=== PATIENT | female | born 1950 | race Caucasian/White ===

== ENCOUNTER 2018-07-15 08:25 | Outpatient (CLI) | payer OTHER, SELFPAY ==
[2018-07-15 10:03] LABS: ALT 33 U/L (12-78); AST 24 U/L (15-37); Albumin 3.8 g/dL (3.4-5.0); Alkaline Phosphatase 80 U/L (46-116); Anion Gap 6.7 mmol/L (3-11); BUN 26 mg/dL (7-18); CO2 28.3 mmol/L (21.0-32.0); CREATININE 1.01 mg/dL (0.55-1.02); Calcium 10.7 mg/dL (8.5-10.1); Chloride 104 mmol/L (98-107); Estimated GFR 54.51 (mL/min/1.73m2); Glucose 97 mg/dL (70-100); Potassium 4.2 mmol/L (3.5-5.1); Sodium 139 mmol/L (136-145)
== END 2018-07-15 08:45 ==
PROVIDERS: PCP Family Medicine; Visit Provider Family Medicine
DX: E83.52 Hypercalcemia (principal)
CPT/HCPCS: 36415; 80053

== ENCOUNTER 2019-01-13 07:10 | Outpatient (CLI) | payer OTHER, SELFPAY ==
[2019-01-13 07:48] LABS: HGB 12.4 g/dL (12.0-15.5); Mean Corp. HGB Concentration 33.5 g/dL (32.0-36.0); Mean Corpuscular Volume 92.5 fL (80-95); Mean Platelet Volume 10.1 fL (8.0-11.0); Platelet Count 287 x1000/uL (130-400); RBC Distribution Width 12.6 % (11.7-14.6); White Blood Cell Count 6.11 k/cumm (4.4-10.8)
[2019-01-13 08:34] LABS: ALT 44 U/L (12-78); AST 22 U/L (15-37); Albumin 3.9 g/dL (3.4-5.0); Alkaline Phosphatase 78 U/L (46-116); Anion Gap 6.6 mmol/L (3-11); BUN 36 mg/dL (7-18); Bilirubin, Total 0.7 mg/dL (0.2-1.0); CO2 28.4 mmol/L (21.0-32.0); CREATININE 1.07 mg/dL (0.55-1.02); Chloride 102 mmol/L (98-107); Cholesterol 202 mg/dL (50-200); Estimated GFR 50.84 (mL/min/1.73m2); Glucose 99 mg/dL (70-100); HDL Cholesterol 55 mg/dL (40-60); LDL CHOLESTEROL 111 mg/dL (<100); Potassium 4.6 mmol/L (3.5-5.1); Sodium 137 mmol/L (136-145); Total Protein 7.1 g/dL (6.4-8.2); Triglyceride 151 mg/dL (30-150)
[2019-01-13 08:44] LABS: Calcium 11.7 mg/dL (8.5-10.1)
[2019-01-13 13:23] LABS: Vitamin D 25 Total 19.4 ng/ml (30-100)
== END 2019-01-13 07:30 ==
PROVIDERS: PCP Family Medicine; Visit Provider Family Medicine
DX: I10 Essential (primary) hypertension (principal); Z00.00 Encounter for general adult medical examination without abnormal findings; E83.52 Hypercalcemia; E78.5 Hyperlipidemia, unspecified
CPT/HCPCS: 36415; 80053; 80061; 82306; 83721; 85027

== ENCOUNTER 2019-01-14 00:39 | Outpatient (CLI) | payer OTHER, SELFPAY ==
--- NOTE | 2019-01-14 07:43 | DI.MAMMO_ITS ---
SYMPTOM/DIAGNOSIS: SCREENING, Z12.31 MAMMOGRAMS: Mammograms were interpreted according to the usual protocol including computer analysis with CAD system, tomosynthesis and C view imaging. Comparison with prior examinations. Breast density A. No suspicious masses or microcalcifications are seen. There is no definite evidence of malignancy. IMPRESSION: Negative mammogram. Routine screening is recommended. Category I. MQSA ASSESSMENT OF FINDINGS: Negative. Category 1. Patient will receive a letter notifying them of these results. BI-RAD category A. The breasts are almost entirely fatty.
== END 2019-01-14 00:59 ==
PROVIDERS: PCP Family Medicine; Visit Provider Nurse Practitioner Family
DX: Z12.31 Encounter for screening mammogram for malignant neoplasm of breast (principal)
CPT/HCPCS: 77063; 77067

== ENCOUNTER 2019-02-09 08:33 | Emergency (ER) | payer OTHER, SELFPAY ==
--- NOTE | 2019-02-09 09:00 | NUR.NOTE ---
pt states that approximately 5 days ago she developed red 2 red spots under he left breast she states that they burn pt also feels rib pain underneath them that radiates along her rib to her back. RN asked PT shingles vaccination status PT ununsure but believed it was approximately 5 years
[2019-02-09 09:03] VITALS: BP 149/58; PULSE 68; RESP 16; TEMP 37.7; O2SAT 97
--- NOTE | 2019-02-09 09:17 | DI.RAD_ITS ---
SYMPTOM/DIAGNOSIS: LT CHEST PAIN PA AND LATERAL CHEST: No priors. The heart is normal in size. The lungs are clear. The mediastinal structures and pleura appear intact. CONCLUSION: Normal chest.
--- NOTE | 2019-02-09 09:20 | ED.GENADUL_ITS ---
Discharge Plan Disposition Patient Disposition: HOME Condition: Improving Discharge Details Chief Complaint: GenMedical Clinical Impression: Shingles outbreak Primary Care Provider: Brittni Tony ED Provider: Sergei Mckinney Home Meds and New Rx's Prescriptions: New valacyclovir 1 gram tablet 1,000 mg PO TID 7 Days Qty: 21 RF: 0 Continued [id number] [Ghtbbl-Zjylj-BQZ (with antiox)] 500-500-66.7 mg tablet 1 tab PO DAILY RF: 0 acetaminophen [Tylenol Extra Strength] 500 MG tablet 1,000 mg PO PRN PRNRF: 0 atorvastatin [Lipitor] 10 mg tablet 10 mg PO DAILY Qty: 90 RF: 4 lisinopril 20 mg tablet 20 mg PO DAILY Qty: 90 RF: 6 ibuprofen [Ibuprofen IB] 200 MG tablet 600 mg PO PRN PRNRF: 0 Discharge Instructions Instructions: Shingles (ED) Additional Instructions: May use Tylenol and/or ibuprofen as needed for pain. Please take medication as prescribed for 7 days. Return for any acute concern Medical Decision Making 68-year-old female presents with an irritating constant left sided rash with radiation to her back over 4 days time. It does appear consistent with shingles. She notes a history of chest cancers in her family and therefore referred for chest x-ray as this is within the differential diagnosis. Radiograph without acute finding. I will treat the patient with a course of valacyclovir 3 times daily times 7 days. She understands homecare, oral analgesia, follow-up as needed. HPI General Mode of arrival: ambulatory . Date/Time Provider Initiated Documentation: 02/09/19 09:10 . Limitations to Documentation: no limitations . Information obtained by: patient . History of Present Illness 68 year old F presents to the emergency department with the chief complaint of Left chest pain and rash under breast times 4 days, described as moderate, Quality is described as dull and constant, and is localized to the chest. Patient reports radiation to back. Patient started experiencing this day(s) and it has been constant. No relieving factors improve symptom(s), Other factors that worsen symptoms (Pressure from bed ) . Patient notes no other symptoms. and rash; denies cough and fever/chills. Patient did receive the following treatments prior to arrival, none Related Data Home Medications Medication Instructions Recorded Confirmed acetaminophen [Tylenol Extra 1,000 mg PO PRN PRN tab-cap 04/08/13 02/09/19 Strength] ibuprofen [Ibuprofen IB] 600 mg PO PRN PRN 11/09/16 02/09/19 ruaomkmtlve-zpe-ajvrnxhbt-hrb 1 tab PO DAILY tab 01/13/19 02/09/19 149-hyalur 500 mg-500 mg-66.7 mg tablet atorvastatin 10 mg tablet 10 mg PO DAILY #90 tab 01/16/19 02/09/19 lisinopril 20 mg tablet 20 mg PO DAILY #90 tab 01/16/19 02/09/19 valacyclovir 1,000 mg PO TID 7 Days #21 tab 02/09/19 Previous Rx's Medication Instructions Recorded atorvastatin 10 mg tablet 10 mg PO DAILY #90 tab 01/16/19 lisinopril 20 mg tablet 20 mg PO DAILY #90 tab 01/16/19 valacyclovir 1,000 mg PO TID 7 Days #21 tab 02/09/19 Allergies Allergy/AdvReac Type Severity Reaction Status Date / Time No Known Drug Allergies Allergy Verified 02/09/19 09:06 General Stated Complaint: GenMedical JERALD: 4 Review of Systems Review of Systems 6 systems reviewed and otherwise neg FORMERLY [facility] Medical History Familial hypocalciuric hypercalcemia (Chronic) Hypercholesterolemia (Acute) diverticulosis (Chronic) 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) Elevation of level of transaminase and lactic acid dehydrogenase (LDH) (Resolved) Smoker (Resolved) Essential hypertension (Inactive) Surgical History History of bilateral tubal ligation (Resolved) Hx of biopsy (Resolved) S/P dilatation and curettage (Resolved) section Colonoscopy - IV Sedation (03/20/06) Colonoscopy - IV Sedation (12/18/16) Dilation and curettage (~2000) Laparoscopic, Ovarian Bx (~2000) Ligation of fallopian tube Family History Sister Diabetes Essential hypertension Depression Hyperlipidemia Mother Essential hypertension Lung cancer Brain cancer Father Diabetes Lung cancer Brother HIV positive Cardiac arrhythmia Maternal Grandfather Lung cancer Paternal Grandfather Stomach cancer Maternal Grandmother Rectal cancer Paternal Grandmother CHF (congestive heart failure) Heart disease Sister Essential hypertension Hyperlipidemia Son No problems noted. Son No problems noted. 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 Pets and animals: No Sexually active: No Do you think of yourself as: straight/heterosexual Current gender identity: female What is your relationship status?: How often do you talk on the phone with friends or family?: three or more times per week How often do you get together with friends or relatives?: once per week How often do you attend spiritism or pentecostal services?: 4 or more times per year Do you belong to any clubs or organized social groups?: no Panel score (0-1 are the most socially isolated patients): 2 What type of physical activity do you participate in: walking and swimming Duration: 45-60 minutes/day Frequency: 3-4 times per week Radha/Congregational: Mandaeism Special radha needs: No Seatbelt use: sometimes Firearms in home: Yes Do you feel safe at home: Yes Do you feel safe in your relationship?: Yes History History 2 Para 2 Hx # Term Pregnancies Multiple births Hx # Pregnancies Ectopic pregnancies AB induced Hx Number of Living Children AB spontaneous Exam Narrative Exam Narrative: GEN: awake, alert, oriented 3. Pleasant, well groomed, interactive. HEAD: Normocephalic, atraumatic ENT: Mucous membranes moist, oropharynx unremarkable, External ear exam unremarkable EYES: PERRL, EOMI NECK: Full ROM, no DAYANARA, no menigismus CHEST/RESP: Nontender, clear to auscultation bilateral, no wheeze/rhonchi/rales. In the left inframammary region there is a slightly tender, raised erythematous rash with small vesicles CARDIOVASCULAR: RRR, no murmur, rub hedy. 2+ Rad pulse bilateral ABDOMEN: Soft, nontender, no mass. +Bowel sounds EXT: Full ROM, no edema, no rash Neuro: Grossly normal neurologic exam, conversant, interactive. Psych: Speech fluent, thoughts congruent, affect normal Course Vital Signs Temperature 37.7 C H 02/09/19 09:03 Pulse 68 02/09/19 09:03 Respiratory Rate 16 02/09/19 09:03 Blood Pressure 149/58 H 02/09/19 09:03 Pulse Oximetry 97 02/09/19 09:03 Temperature 37.7 C H 02/09/19 09:03 Temperature Source Skin 02/09/19 09:03 Pulse 68 02/09/19 09:03 Respiratory Rate 16 02/09/19 09:03 Respiratory Effort 02/09/19 09:07 Respiratory Depth Normal 02/09/19 09:07 Respiratory Pattern Normal 02/09/19 09:07 Blood Pressure 149/58 H 02/09/19 09:03 Blood Pressure Position Supine 02/09/19 09:03 Pulse Oximetry 97 02/09/19 09:03 Oxygen Delivery Method Room Air 02/09/19 09:03 Oxygen Flow Rate 0 02/09/19 09:03 Pain Level 5 02/09/19 09:03
--- NOTE | 2019-02-09 09:52 | DI.VRAD_ITS ---
EXAM: XR Chest, 2 Views EXAM DATE/TIME: 02/09/2019 9:18 AM CLINICAL HISTORY: 68 years old, female; Signs and symptoms; Other: L chest pain TECHNIQUE: Imaging protocol: XR of the chest, 2 views. COMPARISON: No relevant prior studies available. FINDINGS: Lungs: Unremarkable. No consolidation. Pleural space: Unremarkable. No pleural effusion. No pneumothorax. Heart/Mediastinum: Unremarkable. No cardiomegaly. Bones/joints: Unremarkable. IMPRESSION: No acute findings. Dictated and Authenticated by: Shayy Kent MD. Ordering:BRIELLE Mai MD
== END 2019-02-09 10:18 | disposition home or self-care (01) ==
PROVIDERS: Emergency Provider Emergency Medicine; PCP Family Medicine
DX: B02.9 Zoster without complications (principal)
CPT/HCPCS: 99283; 71046

== ENCOUNTER 2020-01-17 03:01 | Outpatient (CLI) | payer MEDICARE, BC, SELFPAY ==
[2020-01-17 10:16] LABS: HCT 36.8 % (36.0-46.0); HGB 12.2 g/dL (12.0-15.5); Mean Corp. HGB Concentration 33.2 g/dL (32.0-36.0); Mean Corpuscular Hemoglobin 30.7 pg (27.0-33.0); Mean Corpuscular Volume 92.5 fL (80-95); Mean Platelet Volume 10.4 fL (8.0-11.0); Platelet Count 272 x1000/uL (130-400); RBC 3.98 m/cumm (4.00-5.20); RBC Distribution Width 12.6 % (11.7-14.6); White Blood Cell Count 5.83 k/cumm (4.4-10.8)
[2020-01-17 11:05] LABS: ALT 35 U/L (14-59); AST 25 U/L (15-37); Alkaline Phosphatase 75 U/L (46-116); Anion Gap 5.9 mmol/L (3-11); BUN 38 mg/dL (7-18); Bilirubin, Total 0.8 mg/dL (0.2-1.0); CO2 29.1 mmol/L (21.0-32.0); CREATININE 1.24 mg/dL (0.55-1.02); Calcium 10.3 mg/dL (8.5-10.1); Calculated LDL 101 mg/dL (<100); Chloride 102 mmol/L (98-107); Cholesterol 181 mg/dL (<200); Estimated GFR 42.76 (mL/min/1.73m2); Glucose 93 mg/dL (74-106); HDL Cholesterol 54 mg/dL (40-60); Potassium 4.7 mmol/L (3.5-5.1); Sodium 137 mmol/L (136-145); Total Protein 7.1 g/dL (6.4-8.2); Triglyceride 130 mg/dL (<150)
== END 2020-01-17 03:21 ==
PROVIDERS: PCP Family Medicine; Visit Provider Family Medicine
DX: I10 Essential (primary) hypertension (principal); E78.00 Pure hypercholesterolemia, unspecified
CPT/HCPCS: 36415; 80053; 80061; 85027

== ENCOUNTER 2020-07-05 11:37 | Outpatient (CLI) | payer MEDICARE, BC, SELFPAY ==
--- NOTE | 2020-07-05 09:45 | DI.RAD_ITS ---
EXAM: XR KNEE LT 3V AP,LAT,HANNAH CLINICAL HISTORY: KNEE PAIN. TECHNIQUE: 2D digital imaging was performed. COMPARISON: CR XR CHEST 2V PA LATERAL from 02/09/2019 FINDINGS: Iqad-vt-eqxymwkj degenerative changes are seen in the left knee characterized by joint space narrowin g and periarticular spurring. The findings are most marked at the patellofemoral joint and the later al femoral tibial joint. The bones are normally mineralized. The soft tissues are unremarkable. IMPRESSION: Qhmf-jc-vfbiwzqa degenerative disease of the left knee. DATA REPOSITORY: RADIATION DOSE DELIVERED:
== END 2020-07-05 11:57 ==
PROVIDERS: PCP Family Medicine; Referring Provider Family Medicine; Visit Provider Student in an Organized Health Care Education/Training Program
DX: M17.12 Unilateral primary osteoarthritis, left knee (principal); M25.562 Pain in left knee; M23.92 Unspecified internal derangement of left knee; I10 Essential (primary) hypertension
CPT/HCPCS: 73562; 99203; 99214

== ENCOUNTER 2020-08-31 07:27 | Outpatient (CLI) | payer MEDICARE, BC, SELFPAY ==
[2020-09-03 09:11] LABS: Patient Race White; SARS-CoV-2 RNA Undetected (Undetected); SARS-CoV-2 Specimen Source Nasal
== END 2020-08-31 07:47 ==
PROVIDERS: PCP Family Medicine; Visit Provider Family Medicine
DX: Z11.59 Encounter for screening for other viral diseases (principal)
CPT/HCPCS: U0003

== ENCOUNTER 2020-09-27 01:49 | Outpatient (CLI) | payer MEDICARE, BC, SELFPAY ==
--- NOTE | 2020-09-27 12:49 | DI.MAMMO_ITS ---
EXAM: MAMMO SCREENING CLINICAL HISTORY: screening TECHNIQUE: Mammograms were interpreted according to the usual protocol including computer analysis w [employer] CAD system, tomosynthesis and C-view imaging. COMPARISON: 2010 through 2018 FINDINGS: The breasts are composed of mainly fatty density , Breast Density category A. No suspicious masses or suspicious microcalcifications are seen. No skin thickening or abnormal axillary lymph nodes are seen. There has been no significant change from prior exams. IMPRESSION: BI-RADS Category 1, Negative mammogram Yearly screening mammography is recommended. Breast Density - Category A, fatty density. A negative radiographic report should not delay biopsy if a dominant or clinically suspicious mass is present. Up to ten percent of cancers are not identified on mammography. A negative report may reinforce clinical impression. Adenosis and dense breasts may obscure an underlying neoplasm. False positive reports average 6 to 10%. Patient will receive a letter notifying them of these results.
== END 2020-09-27 02:09 ==
PROVIDERS: PCP Family Medicine; Visit Provider Nurse Practitioner Family
DX: Z12.31 Encounter for screening mammogram for malignant neoplasm of breast (principal)
CPT/HCPCS: 77063; 77067

== ENCOUNTER 2021-01-19 02:26 | Outpatient (CLI) | payer MEDICARE, BC, SELFPAY ==
[2021-01-19 09:26] LABS: ALT 41 U/L (14-59); AST 19 U/L (15-37); Albumin 3.7 g/dL (3.4-5.0); Alkaline Phosphatase 65 U/L (46-116); Anion Gap 6.9 mmol/L (3-11); BUN 35 mg/dL (7-18); Bilirubin, Total 0.5 mg/dL (0.2-1.0); CO2 28.1 mmol/L (21.0-32.0); CREATININE 1.4 mg/dL (0.55-1.02); Calcium 10.9 mg/dL (8.5-10.1); Chloride 105 mmol/L (98-107); Estimated GFR 37.07 (mL/min/1.73m2); Glucose 94 mg/dL (74-106); Potassium 4.5 mmol/L (3.5-5.1); Sodium 140 mmol/L (136-145); Total Protein 6.6 g/dL (6.4-8.2)
[2021-01-20 04:45] LABS: Vitamin D 25 Total 26.6 ng/ml (30-100)
== END 2021-01-19 02:27 | disposition home or self-care (01) ==
LOC: LBO 02:26
PROVIDERS: PCP Family Medicine; Visit Provider Family Medicine
DX: E55.9 Vitamin D deficiency, unspecified (principal); R79.89 Other specified abnormal findings of blood chemistry
CPT/HCPCS: 36415; 80053; 82306

== ENCOUNTER 2021-09-05 02:51 | Outpatient (CLI) | payer MEDICARE, BC, SELFPAY ==
[2021-09-05 09:09] LABS: ALT 90 U/L (14-59); AST 27 U/L (15-37); Albumin 3.9 g/dL (3.4-5.0); Alkaline Phosphatase 88 U/L (46-116); Anion Gap 8.5 mmol/L (3-11); BUN 37 mg/dL (7-18); Bilirubin, Total 0.7 mg/dL (0.2-1.0); CO2 26.5 mmol/L (21.0-32.0); CREATININE 1.3 mg/dL (0.55-1.02); Calcium 10.8 mg/dL (8.5-10.1); Calculated LDL 133 mg/dL (<100); Chloride 104 mmol/L (98-107); Cholesterol 217 mg/dL (<200); Estimated GFR 40.38 (mL/min/1.73m2); Glucose 94 mg/dL (74-106); HDL Cholesterol 50 mg/dL (40-60); Potassium 4.8 mmol/L (3.5-5.1); Sodium 139 mmol/L (136-145); Triglyceride 171 mg/dL (<150)
== END 2021-09-05 02:52 | disposition home or self-care (01) ==
LOC: LBO 02:51
PROVIDERS: PCP Family Medicine; Visit Provider Family Medicine
DX: I10 Essential (primary) hypertension (principal); E78.00 Pure hypercholesterolemia, unspecified; R74.8 Abnormal levels of other serum enzymes
CPT/HCPCS: 36415; 80053; 80061

== ENCOUNTER 2022-02-10 02:47 | Outpatient (CLI) | payer MEDICARE, BC, SELFPAY ==
[2022-02-10 10:36] LABS: ALT 41 U/L (14-59); AST 20 U/L (15-37); Albumin 3.9 g/dL (3.4-5.0); Alkaline Phosphatase 92 U/L (46-116); Anion Gap 8.8 mmol/L (3-11); BUN 44 mg/dL (7-18); Bilirubin, Total 0.7 mg/dL (0.2-1.0); CO2 26.2 mmol/L (21.0-32.0); CREATININE 1.4 mg/dL (0.55-1.02); Calcium 11.1 mg/dL (8.5-10.1); Calculated LDL 153 mg/dL (<100); Chloride 104 mmol/L (98-107); Cholesterol 242 mg/dL (<200); Estimated GFR 36.96 (mL/min/1.73m2); Glucose 92 mg/dL (74-106); HDL Cholesterol 55 mg/dL (40-60); Potassium 4.9 mmol/L (3.5-5.1); Sodium 139 mmol/L (136-145); Triglyceride 172 mg/dL (<150)
[2022-02-13 06:59] LABS: Vitamin D 25 Total 22.1 ng/mL (30-100)
== END 2022-02-10 02:48 | disposition home or self-care (01) ==
LOC: LBO 02:47
PROVIDERS: PCP Family Medicine; Visit Provider Family Medicine
DX: E55.9 Vitamin D deficiency, unspecified (principal); I10 Essential (primary) hypertension; R79.89 Other specified abnormal findings of blood chemistry
CPT/HCPCS: 36415; 80053; 80061; 82306

== ENCOUNTER → 2022-02-13 14:00 | Outpatient (CLI) | payer MEDICARE, BC, SELFPAY ==
--- NOTE | 2022-02-13 | DI.RAD_ITS ---
Exam(s) XR CHEST 2V PA LATERAL EXAM: XR CHEST 2V PA LATERAL CLINICAL HISTORY: COUGH, R05.9 TECHNIQUE: 2D digital imaging was performed. COMPARISON: CR XR CHEST 2V PA LATERAL from 02/09/2019 FINDINGS: MEDIASTINUM: Normal. HEART: Normal. PULMONARY VASCULATURE: Normal. LUNGS: Clear. PLEURAL SPACE: No pleural effusion or pneumothorax. BONE:Unremarkable for age. IMPRESSION: No acute abnormality. DATA REPOSITORY: RADIATION DOSE DELIVERED:
== END ==
PROVIDERS: PCP Family Medicine; Visit Provider Family Medicine
DX: R05.8 Other specified cough (principal)
CPT/HCPCS: 71046

== ENCOUNTER 2022-03-20 03:31 | Outpatient (CLI) | payer MEDICARE, BC, SELFPAY ==
[2022-03-20 11:11] LABS: ALT 31 U/L (14-59); AST 21 U/L (15-37); Albumin 4.2 g/dL (3.4-5.0); Alkaline Phosphatase 73 U/L (46-116); Anion Gap 8.4 mmol/L (3-11); BUN 27 mg/dL (7-18); CO2 26.6 mmol/L (21.0-32.0); CREATININE 1.3 mg/dL (0.55-1.02); Chloride 104 mmol/L (98-107); Estimated GFR 40.26 (mL/min/1.73m2); Glucose 104 mg/dL (74-106); Potassium 4.8 mmol/L (3.5-5.1); Sodium 139 mmol/L (136-145); Total Protein 7.1 g/dL (6.4-8.2)
[2022-03-20 11:24] LABS: Bilirubin, Total 0.8 mg/dL (0.2-1.0)
== END 2022-03-20 03:32 | disposition home or self-care (01) ==
LOC: LBO 03:31
PROVIDERS: PCP Family Medicine; Visit Provider Family Medicine
DX: R79.89 Other specified abnormal findings of blood chemistry (principal)
CPT/HCPCS: 36415; 80053

== ENCOUNTER → 2022-03-24 00:53 | Outpatient (CLI) | payer MEDICARE, BC, SELFPAY ==
--- NOTE | 2022-03-24 09:00 | DI.DEXA_ITS ---
Exam(s) XR DEXA BONE DENSITY W/WO MARQUISE EXAM: XR DEXA BONE DENSITY W/WO MARQUISE CLINICAL HISTORY: age related osteoporosis, M81.0 TECHNIQUE: COMPARISON: Comparison examination is 11/21/2007. FINDINGS: Lateral Spine Image: Unremarkable. No compression deformities identified. Left hip: Total T-Score: -1.0. This compares to -0.2 on the prior examination. This is a decrease of 9.9 perc ent in the bone mineral density. Total Z-Score: 0.6 T- and Z-scores: Within normal limits. Lumbar Spine: Total T-Score: -1.0. This compares to -1.2 on the prior examination. This is a 3.2 percent increase in the bone mineral density. Total Z-Score: 1.3 T- and Z-scores: Within normal limits. IMPRESSION: No evidence of osteoporosis.
--- NOTE | 2022-03-24 15:45 | DI.MAMMO_ITS ---
Exam(s) MAMMO SCREENING EXAM: MAMMO SCREENING CLINICAL HISTORY: screening, Z12.39 TECHNIQUE: Bilateral full field digital CC and MLO mammographic images were obtained with 3D tomosyn thesis and utilizing computer aided detection (CAD). COMPARISON: Available for comparison. FINDINGS: Masses/Architectural Distortion: None seen. There is a question of a new nodule in the outer left abdulaziz ast on the CC view. Microcalcifications: No suspicious pleomorphic-type are seen. Skin Thickening/Nipple Retraction: None. IMPRESSION: 1. Question of a new small nodule in the outer left breast on the CC view. 2. Additional views of the left breast should be obtained. Ultrasound may be indicated at that time. BI-RADS Category 0 - Assessment Incomplete: Need additional imaging evaluation Breast Density - Category A - Almost entirely fatty Breast density category C or D implies that the patient has dense breast tissue. Dense breast tissue is very common and is not abnormal but dense breast tissue can make it harder to find cancer on a ma mmogram. Also, dense breast tissue may increase their breast cancer risk. This information about the result of the mammogram report was provided to the patient to raise their awareness. Use this report when you speak with the patient about their risks for breast cancer, which includes their family hist ory. At that time, you may recommend for more screening tests (Ultrasound or MRI) as they might be us eful based on their risk. A negative radiographic report should not delay biopsy if a dominant or clinically suspicious mass is present. Up to ten percent of cancers are not identified on mammography. A negative report may reinforce clinical impression. Adenosis and dense breasts may obscure an underlying neoplasm. False positive reports average 6 to 10%. Patient will receive a letter notifying them of these results.
== END ==
PROVIDERS: PCP Family Medicine; Visit Provider Family Medicine
DX: Z12.31 Encounter for screening mammogram for malignant neoplasm of breast (principal); M85.88 Other specified disorders of bone density and structure, other site; R92.8 Other abnormal and inconclusive findings on diagnostic imaging of breast
CPT/HCPCS: 77063; 77067; 77080

== ENCOUNTER → 2022-04-04 01:08 | Outpatient (CLI) | payer MEDICARE, BC, SELFPAY ==
--- NOTE | 2022-04-04 14:30 | DI.MAMMO_ITS ---
Exam(s) MAMMO SCREEN CALL BACK UNI EXAM: MAMMO SCREEN CALL BACK UNI-LEFT AND COMPLETE LEFT BREAST ULTRASOUND CLINICAL HISTORY: F/U ABNL MAMMO, ? SMALL NODULE IN OUTER LT BREAST. TECHNIQUE: Unilateral spot mammographic images obtained with 3D tomosynthesisand utilizing computer aided detection (CAD). . Complete LEFT breast Ultrasound was also performed, including all 4 quadrants, the retroareolar regio n, and the ipsilateral axilla. COMPARISON: Prior mammograms were reviewed. This additional imaging was performed due to findings described on the recent screening mammogram of 03/24/2022. FINDINGS: DIAGNOSTIC LEFT BREAST MAMMOGRAM: Additional mammographic views performed todayrender this area somewhat less concerning.Probably benig n intramammary lymph node COMPLETE LEFT BREAST ULTRASOUND: Ultrasound performed today reveals no significant focal findings in all 4 quadrants nor in the retroa reolar region. Scanning of the left axilla is negative for significant adenopathy. IMPRESSION: 1. Benign-appearing left breast mammographic finding. 2. Negative complete left breast ultrasound. Appropriate follow-up is repeat left breast MAMMOGRAM in 6 months, with earlier imaging if a self de tected breast change is noted.. The patient was informed of these findings and recommendations prior to leaving the department today. BI-RADS Category 3 - 6 month - Probably Benign Finding: Recommend follow-up mammography in 6 months Breast Density - Category B - Scattered areas of fibroglandular density Breast density Category C or D implies that the patient has dense breast tissue. Dense breast tissue can make it harder to find cancer on a mammogram. Dense breast tissue is also associated with an incr eased risk of breast cancer. This information about the result of the mammogram report was provided to the patient to raise their awareness. Use this report when you speak with the patient about their risks for breast cancer, which includes their family history. At that time, you may recommend additional screening tests (Ultrasoun d or MRI) as these tests may add significant information. A negative radiographic report should not delay biopsy if a dominant or clinically suspicious mass is present. Up to ten percent of cancers are not identified on mammography. A negative report may reinforce clinical impression. Adenosis and dense breasts may obscure an underlying neoplasm. False positive reports average 6 to 10%. Patient will receive a letter notifying them of these results.
--- NOTE | 2022-04-04 15:00 | DI.US_ITS ---
Exam(s) US BREAST LT COMPLETE EXAM: US BREAST LT COMPLETE CLINICAL HISTORY: ? SMALL NODULE IN OUTER LT BREAST. TECHNIQUE: Complete ultrasound of the left breast was performed including all 4 quadrants, the retro areolar region, and the ipsilateral axilla. COMPARISON: Prior mammograms were reviewed. Today's diagnostic left breast mammogram was reviewed. FINDINGS: There is no evidence of solid or significant cystic lesions in all 4 quadrants of left breast. Also no findings in the retroareolar region Scanning of the left axilla is negative for significant adenopathy IMPRESSION: Negative complete left breast ultrasound. Appropriate follow-up is follow-up left breast MAMMOGRAM in 6 months, with earlier imaging if a self detected breast change is noted.. BI-RADS Category 3 - 6 month - Probably Benign Finding: Recommend follow-up mammography in 6 months Breast Density - Category B - Scattered areas of fibroglandular density Breast density Category C or D implies that the patient has dense breast tissue. Dense breast tissue can make it harder to find cancer on a mammogram. Dense breast tissue is also associated with an incr eased risk of breast cancer. This information about the result of the mammogram report was provided to the patient to raise their awareness. Use this report when you speak with the patient about their risks for breast cancer, which includes their family history. At that time, you may recommend additional screening tests (Ultrasoun d or MRI) as these tests may add significant information. A negative radiographic report should not delay biopsy if a dominant or clinically suspicious mass is present. Up to ten percent of cancers are not identified on mammography. A negative report may reinforce clinical impression. Adenosis and dense breasts may obscure an underlying neoplasm. False positive reports average 6 to 10%. Patient will receive a letter notifying them of these results.
== END ==
PROVIDERS: PCP Family Medicine; Visit Provider Family Medicine
DX: Z12.31 Encounter for screening mammogram for malignant neoplasm of breast (principal); R92.8 Other abnormal and inconclusive findings on diagnostic imaging of breast; N64.59 Other signs and symptoms in breast
CPT/HCPCS: 76642; 77063; 77067

== ENCOUNTER 2022-04-14 13:54 | Outpatient (REF) | payer MEDICARE, BC, SELFPAY ==
--- NOTE | 2022-04-14 11:15 | LABIA_PTH ---
PATIENT: Daniella Pitts LOC: [facility] U#:[id number] AGE/SX: 71/F ROOM: RE04/14/[address]: Jessica Jasso MD : 1950 BED: DIS: 04/14/2022 SPEC #: [id number] RECD: 04/14/22 17:29 STATUS: YAHAIRA RESelvin #: [id number] ELEAZAR: 04/14/22 11:[address]: Jessica Jasso DEPT: Surgical Specimen RECD BY: Gladys Hodge ENTERED: 04/14/22 17:30 SP TYPE: LABIA OTHR DR: Brittni Tony MD, DC Tissues: 1 - LABIA BX Procedures: GROSS AND MICRO LEVEL 4 Comments:
== END 2022-04-14 13:55 | disposition home or self-care (01) ==
LOC: LBN 13:54
PROVIDERS: PCP Family Medicine; Visit Provider Obstetrics & Gynecology
DX: N90.4 Leukoplakia of vulva (principal)
CPT/HCPCS: 88305

== ENCOUNTER 2022-07-25 01:42 | Outpatient (CLI) | payer MEDICARE, BC, SELFPAY ==
[2022-07-25 09:14] LABS: ALT 48 U/L (14-59); AST 24 U/L (15-37); Albumin 3.7 g/dL (3.4-5.0); Alkaline Phosphatase 78 U/L (46-116); Anion Gap 7.4 mmol/L (3-11); BUN 32 mg/dL (7-18); Bilirubin, Total 0.7 mg/dL (0.2-1.0); CO2 28.6 mmol/L (21.0-32.0); CREATININE 1.2 mg/dL (0.55-1.02); Calcium 11.1 mg/dL (8.5-10.1); Chloride 101 mmol/L (98-107); Estimated GFR 48.09 (mL/min/1.73m2); Glucose 93 mg/dL (74-106); Potassium 4.4 mmol/L (3.5-5.1); Sodium 137 mmol/L (136-145); Total Protein 7.4 g/dL (6.4-8.2)
== END 2022-07-25 01:43 | disposition home or self-care (01) ==
LOC: LBO 01:42
PROVIDERS: PCP Family Medicine; Visit Provider Family Medicine
DX: I10 Essential (primary) hypertension (principal)
CPT/HCPCS: 36415; 80053

== ENCOUNTER → 2022-10-10 02:08 | Outpatient (CLI) | payer MEDICARE, BC, SELFPAY ==
--- NOTE | 2022-10-10 07:30 | DI.MAMMO_ITS ---
Exam(s) MAMMO DIAGNOSTIC UNI EXAM: MAMMO DIAGNOSTIC UNI CLINICAL HISTORY: f/u abnormal mammo, r92.8,6 mo f/u. TECHNIQUE: Craniocaudal and mediolateral oblique Full Field Digital Mammography views of the left br east with Computer Aided Diagnosis followed by Tomosynthesis. COMPARISON: Comparison is made with prior examinations. FINDINGS: Mammography/Tomosynthesis: Masses/Architectural Distortion: None seen. Microcalcifictions: No suspicious pleomorphic-type are seen. Skin Thickening/Nipple Retraction: None. IMPRESSION: 1. No evidence of malignancy is noted. 2. Unless there is more urgent need, follow-up screening mammography is recommended, as per [place] [employer] guidelines. 3. The findings were discussed with the patient on the date of the examination. BI-RADS Category 1 - Negative Breast Density - Category A - Almost entirely fatty Breast density Category C or D implies that the patient has dense breast tissue. Dense breast tissue can make it harder to find cancer on a mammogram. Dense breast tissue is also associated with an incr eased risk of breast cancer. This information about the result of the mammogram report was provided to the patient to raise their awareness. Use this report when you speak with the patient about their risks for breast cancer, which includes their family history. At that time, you may recommend additional screening tests (Ultrasoun d or MRI) as these tests may add significant information. A negative radiographic report should not delay biopsy if a dominant or clinically suspicious mass is present. Up to ten percent of cancers are not identified on mammography. A negative report may reinforce clinical impression. Adenosis and dense breasts may obscure an underlying neoplasm. False positive reports average 6 to 10%. Patient will receive a letter notifying them of these results.
== END ==
PROVIDERS: PCP Family Medicine; Visit Provider Family Medicine
DX: R92.8 Other abnormal and inconclusive findings on diagnostic imaging of breast (principal)
CPT/HCPCS: 77061; 77065; G0279

== ENCOUNTER 2023-03-20 03:00 | Outpatient (CLI) | payer MEDICARE, BC, SELFPAY ==
[2023-03-20 13:15] LABS: ALT 36 U/L (14-59); AST 19 U/L (15-37); Albumin 3.9 g/dL (3.4-5.0); Alkaline Phosphatase 61 U/L (46-116); BUN 38 mg/dL (7-18); Bilirubin, Total 0.7 mg/dL (0.2-1.0); CREATININE 1.3 mg/dL (0.55-1.02); Calcium 10.9 mg/dL (8.5-10.1); Calculated LDL 96 mg/dL (<100); Chloride 103 mmol/L (98-107); Cholesterol 186 mg/dL (<200); Estimated GFR 43.42 (mL/min/1.73m2); Glucose 98 mg/dL (74-106); HDL Cholesterol 61 mg/dL (40-60); Potassium 4.2 mmol/L (3.5-5.1); Sodium 139 mmol/L (136-145); Total Protein 7.3 g/dL (6.4-8.2); Triglyceride 145 mg/dL (<150)
== END 2023-03-20 03:01 | disposition home or self-care (01) ==
LOC: LOS 03:00
PROVIDERS: PCP Family Medicine; Visit Provider Family Medicine
DX: I10 Essential (primary) hypertension (principal); R79.89 Other specified abnormal findings of blood chemistry
CPT/HCPCS: 36415; 80053; 80061

== ENCOUNTER 2023-06-22 13:30 | Emergency (ER) | payer MEDICARE, BC, SELFPAY ==
[2023-06-22 13:35] VITALS: BP 140/81; PULSE 88; RESP 16; TEMP 36.8; O2SAT 97
[2023-06-22] MEDS: Normal Saline 500 ML 1000 ML IV (14:29)
--- NOTE | 2023-06-22 14:30 | W.ED.GENAD ---
Discharge Plan Disposition Patient Disposition: Home Condition: Stable Discharge Details Clinical Impression: Duodenitis Primary Care Provider: Brittni Tony ED Provider: Liang Pride Home Meds and New Rx's Prescriptions: New pantoprazole 40 mg tablet,delayed release (DR/EC) 40 mg PO DAILY Qty: 30 0RF No Action cholecalciferol (vitamin D3) 50 mcg (2,000 unit) capsule 50 mcg PO DAILY Patient Comments: Patient currently taking 5000 mcg acetaminophen [Tylenol Extra Strength] 500 MG tablet 1,000 mg PO PRN PRN lisinopril 20 mg tablet 20 mg PO DAILY Qty: 90 6RF atorvastatin 20 mg tablet 20 mg PO DAILY Qty: 90 4RF Discharge Instructions Instructions: Duodenitis (ED) Additional Instructions: Please follow-up with your primary care physician as well as [facility] regarding findings today on your CT scan. Please return to the emergency department for any worsening symptoms. Medical Decision Making 72-year-old female history of diverticulosis, prior section, hypertension, presents with abdominal discomfort described as bloating sensation and nausea, no vomiting, no diarrhea or constipation, abdomen soft nontender nondistended, consider partial bowel obstruction versus gas versus early diverticulitis versus enteritis versus colitis lower suspicion for UTI given no urinary symptoms, muscles consider atypical ACS given age. Screening labs imaging fluids antiemetics close reassessment 15: 42 rest comfortably no acute distress. CT showing evidence of mild duodenitis, this is consistent with patient's symptoms. Consider peptic ulcer disease versus H. pylori. Patient will be started on pantoprazole encouraged to follow with primary care regarding symptomatology as well as incidental CT findings. Will also be given referral to women's wellness for evaluation of uterine and ovarian findings on CT. HPI General Date/Time Provider Initiated Documentation: 06/22/23 14:04. HPI Narrative: 72-year-old female history of prior section, diverticulosis, hypertension, presents with abdominal pain bloating and nausea over the past couple of days endorses normal bowel movement and passing normal flatus. Related Data Home Medications Medication Instructions Recorded Confirmed acetaminophen 500 mg tablet 1,000 mg PO PRN PRN 04/08/13 06/22/23 (Tylenol Extra Strength) cholecalciferol (vitamin D3) 50 50 mcg PO DAILY 03/20/22 06/22/23 mcg (2,000 unit) capsule atorvastatin 20 mg tablet 20 mg PO DAILY #90 tabs 03/15/23 06/22/23 lisinopril 20 mg tablet 20 mg PO DAILY #90 tabs 03/15/23 06/22/23 pantoprazole 40 mg tablet,delayed 40 mg PO DAILY #30 tabs 06/22/23 release Previous Rx's Medication Instructions Recorded atorvastatin 20 mg tablet 20 mg PO DAILY #90 tabs 03/15/23 lisinopril 20 mg tablet 20 mg PO DAILY #90 tabs 03/15/23 pantoprazole 40 mg tablet,delayed 40 mg PO DAILY #30 tabs 06/22/23 release Allergies Allergy/AdvReac Type Severity Reaction Status Date / Time No Known Drug Allergies Allergy Verified 06/22/23 13:37 General Stated Complaint: Abd Prob JERALD: 3 Review of Systems Narrative: Review of Systems Constitutional: negative Eyes: negative ENT: negative Cardiovascular: negative Respiratory: negative Gastrointestinal: Abdominal pain, nausea : negative Musculoskeletal: negative Skin: negative Neurologic: negative Psych: negative PFSH All Active Problems (Updated 06/22/23 @ 15:44 by Liang Pride MD) Duodenitis (Acute) Tremor of right hand (Acute) 2/m; intention Hypertension (Chronic) Abnormal mammogram of left breast (Acute) Elevated serum creatinine (Acute) Familial hypocalciuric hypercalcemia (Chronic) Hypercholesterolemia (Acute) diverticulosis (Chronic) Medical History Advance care planning Cough Elevation of level of transaminase and lactic acid dehydrogenase (LDH) 08/30/09 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 (10/06/13) Skin tag of labia removed 04/14 Smoker 10PY Hx;quit in Vitamin D deficiency Surgical History section LOW TRANSVERSE Colonoscopy - IV Sedation (03/20/06) Colonoscopy - IV Sedation (12/18/16) Dilation and curettage (~2000) ALSO PELVIC WASHING History of bilateral tubal ligation Hx of biopsy 11/05/00 laproscopic ovarian biopsy-left Laparoscopic, Ovarian Bx (~2000) left Ligation of fallopian tube S/P dilatation and curettage 11/05/00 and pelvic washing Family History Sister Diabetes Essential hypertension Depression Hyperlipidemia Mother , 68 Essential hypertension Lung cancer Brain cancer Father , 66 Diabetes Lung cancer Brother , 36 HIV positive Cardiac arrhythmia Maternal Grandfather , 60s Lung cancer Paternal Grandfather , 60s Stomach cancer Maternal Grandmother , 60s Rectal cancer Paternal Grandmother , 90s CHF (congestive heart failure) Heart disease Sister Essential hypertension Hyperlipidemia Son No problems noted. Son No problems noted. 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 Pets and animals: No Sexually active: No Do you think of yourself as: straight/heterosexual Current gender identity: female What is your relationship status?: How often do you talk on the phone with friends or family?: three or more times per week How often do you get together with friends or relatives?: decline to answer How often do you attend yazidism or holiness services?: decline to answer Do you belong to any clubs or organized social groups?: no Panel score (0-1 are the most socially isolated patients): 1 What type of physical activity do you participate in: swimming Duration: 45-60 minutes/day Frequency: 3-4 times per week Radha/Judaism: Sikhism Special radha needs: No Seatbelt use: always Helmet use: Yes Drive intox or ride w/intox service parts driver: No Firearms in home: Yes Do you feel safe at home: Yes Do you feel safe in your relationship?: Yes History History 2 Para 2 Hx # Term Pregnancies Multiple births Hx # Pregnancies Ectopic pregnancies AB induced Hx Number of Living Children AB spontaneous Exam Narrative Exam Narrative: Physical Examination General: alert, awake, cooperative, resting comfortably, no acute distress HEENT: normocephalic, atraumatic; PERRL, EOM intact, conjunctiva normal; no nasal discharge; moist mucous membranes, oral and pharyngeal mucosa normal, tolerating secretions Neck: supple, trachea midline; full ROM Chest: normal to inspection Respiratory: normal respiratory effort, speaking in full sentences, clear to auscultation, no wheezing, rales or rhonchi Cardiac: regular rate, regular rhythm, S1S2 intact, no murmurs rubs or gallops GI: abdomen soft, non-tender, non-distended; no palpable mass or hepatosplenomegaly Skin: no lesions, rashes or trauma appreciated Neuro: AAOx3, normal speech, moving all extremities Psych: Appropriate mood and affect Course Vital Signs Vital signs: Vital Signs Temperature 36.8 C 06/22/23 13:35 Pulse 88 06/22/23 13:35 Respiratory Rate 16 06/22/23 13:35 Blood Pressure 140/81 06/22/23 13:35 Pulse Oximetry 97 06/22/23 13:35 Temperature 36.8 C 06/22/23 13:35 Temperature Source Skin 06/22/23 13:35 Pulse 88 06/22/23 13:35 Respiratory Rate 16 06/22/23 13:35 Respiratory Effort Normal, Non-Labored 06/22/23 13:53 Blood Pressure 140/81 06/22/23 13:35 Blood Pressure Position Sitting 06/22/23 13:35 Pulse Oximetry 97 06/22/23 13:35 Oxygen Delivery Method Room Air 06/22/23 13:35 Oxygen Flow Rate 0 06/22/23 13:35 Pain Level 5 06/22/23 13:35
[2023-06-22 14:31] LABS: Abs Immature Grans 0.05 10^3/uL (0.0-0.06); Absolute Basophil Count 0.06 10^3/uL (0.0-0.2); Absolute Eosinophil Count 0.24 10^3/uL (0.0-0.7); Absolute Monocyte Count 0.56 10^3/uL (0.1-0.8); Absolute Neutrophil Count 4.78 10^3/uL (1.2-6.7); Basophils % 0.8; Eosinophils % 3.2; HCT 36.4 % (36.0-46.0); HGB 12.4 g/dL (11.2-15.7); Immature Grans % 0.7; MCH 31.3 pg (27.0-33.0); MCHC 34.1 % (32.0-36.0); MCV 92 fL (80-95); MPV 11.3 fL (8.0-11.0); Monocytes % 7.4; Neutrophils % 62.9; Platelet Count 251 10^3/uL (130-400); RBC 3.96 10^6/uL (3.93-5.22); RDW 12.8 % (11.7-14.6); RDW-SD 43.4 fL; WBC 7.59 10^3/uL (4.4-10.8)
[2023-06-22] MEDS: Ondansetron 4 MG/2 ML VIAL IVP (14:31)
[2023-06-22 14:33] LABS: Bilirubin Negative (Negative); Blood Negative (Negative); Clarity Clear (Clear); Glucose Negative (Negative); Ketones Negative (Negative); Leukocyte Esterase Trace (Negative); Nitrite Negative (Negative); Urobilinogen 0.2 mg/dL (Up to 0.2); pH 5.5 (5-8)
[2023-06-22 14:48] LABS: Bacteria Rare HPF (Negative); Casts Negative LPF (Negative); Crystals Negative HPF (Negative); Epithelial Cells Moderate HPF (Negative); Mucus Negative (Negative); RBC 0-2 HPF (0-2)
[2023-06-22 14:49] LABS: C & S Indicated? No/Sq. Contamination
[2023-06-22 14:55] LABS: ALT 38 U/L (14-59); AST 21 U/L (15-37); Alkaline Phosphatase 70 U/L (46-116); Anion Gap 9.2 mmol/L (3-11); BUN 27 mg/dL (7-18); Bilirubin, Total 0.9 mg/dL (0.2-1.0); CO2 26.8 mmol/L (21.0-32.0); CREATININE 1.2 mg/dL (0.55-1.02); Calcium 11.5 mg/dL (8.5-10.1); Chloride 107 mmol/L (98-107); Glucose 97 mg/dL (74-106); Lipase 30 U/L (16-77); Potassium 3.9 mmol/L (3.5-5.1); Sodium 143 mmol/L (136-145); Total Protein 7.2 g/dL (6.4-8.2); Troponin I < 50 ng/L (<or=60)
[2023-06-22] MEDS: Normal Saline - Diluent 50 ML VIAL IV (15:18)
--- NOTE | 2023-06-22 15:18 | DI.CT_ITS ---
Exam(s) CT ABDOMEN PELVIS W EXAM: CT ABDOMEN PELVIS W CLINICAL HISTORY: abdominal pain, bloating nausea. TECHNIQUE: Imaging Protocol: Axial computed tomography images with coronal and sagittal reformatted images were created and reviewed CONTRAST MATERIAL: Intravenous: Omnipaque-350 100cc Oral: None COMPARISON: No exams were available for comparison FINDINGS: VISUALIZED LUNG BASES: No nodules nor pleural effusions evident. ABDOMEN: There is no ascites. LIVER: There are no focal hepatic lesions evident. No dilated intrahepatic ducts. GALLBLADDER/BILIARY: No obvious gallbladder pathology. CBD is not dilated. PANCREAS: No evidence of pancreatic mass nor dilatation of the pancreatic duct. SPLEEN: Spleen size is normal. There is a small 6 mm cyst in the peripheral aspect of the spleen. S plenic and portal veins are patent. ADRENALS: There are no significant adrenal masses. KIDNEYS:Mild developmental malrotation. No significant focal findings. No calculi. No hydronephros is. No hydroureter. No significant focal findings the urinary bladder.. ABDOMINAL AORTA: Abdominal aorta is not enlarged. LYMPH NODES:There is no retroperitoneal nor paraaortic adenopathy. ABDOMINAL WALL: No evidence of significant anterior abdominal wall nor inguinal hernia. GI: There is no evidence of bowel obstruction, free air, nor abscess. However, the duodenal C-loop a ppears edematous consistent with probable duodenitis. No free air noted. The sigmoid is redundant. There diverticuli but no evidence of acute diverticulitis.. There is also interposition of the right-side of the colon between the liver and the right anterior abdominal wall . PELVIS: GI: No evidence of appendicitis.No evidence of small-bowel obstruction. LYMPH NODES: There is no intrapelvic nor inguinal adenopathy. REPRODUCTIVE: Uterus is enlarged and lobulated and contains multiple calcified fibroids. Cannot deli neate the endometrium from the myometrium here. There is a cyst in the left ovary which measures 2 x 1.8 cm. The right ovary is also contains a similar size cyst. No free fluid in the idbidw-ree-id-s ac. URINARY BLADDER: No calculi nor obvious masses evident OSSEOUS: No fractures and no significant osseous lesions. And disc space narrowing L5-S1 level and L1-2. IMPRESSION: 1. Redundant sigmoid. Diverticulosis without evidence of obvious acute diverticulitis. Also interpo sition of the colon between the right hepatic lobe and the right anterior abdominal wall noted. No b owel obstruction. No evidence of appendicitis. 2. Enlarged fibroid uterus which contains multiple calcified fibroids. Cannot delineate the endometr ium from the myometrium here and this should be performed with ultrasound exam. 3. The duodenal C-loop appears edematous consistent with probable duodenitis.. The wall of the thick ened the duodenum measures approximately 7 mm. There is no surrounding free air. Discussed by phone with ER physician. RADIATION DOSE DELIVERED: 1,056.33mGy.cm Total DLP DATA REPOSITORY: All CT scans at this facility are submitted to the National Radiology Data Registry (NRDR) Dose Index Registry (DIR) with the [employer] (ACR). RADIATION OPTIMIZATION: All CT scans at this facility use at least one of these dose optimization te chniques: automated exposure control; mA and/or kV adjustment per patient size (includes targeted exa ms where dose is matched to clinical indication); or iterative reconstruction.
[2023-06-22] MEDS: Omnipaque 350 MG/ML 100 ML BTL IJ (15:19)
--- NOTE | 2023-06-22 15:43 | NUR.NOTE ---
Nursing Note: PT needs follow up next week with [facility] for abnormal Cat scan of uterus & ovaries. Naina, ED
== END 2023-06-22 16:44 | disposition home or self-care (01) ==
PROVIDERS: Emergency Provider Emergency Medicine; PCP Family Medicine
DX: K29.80 Duodenitis without bleeding (principal)
CPT/HCPCS: 80053; 83690; 96361; 96374; 99285; 74177; 81003; 81015; 84484; 85025; 99284; J2405; J3490

== ENCOUNTER → 2023-07-24 02:28 | Outpatient (CLI) | payer MEDICARE, BC, SELFPAY ==
--- NOTE | 2023-07-24 07:30 | DI.US_ITS ---
Exam(s) US PELVIS TRANSVAGINAL EXAM: US PELVIS TRANSVAGINAL CLINICAL HISTORY: F/U CT,enlarged uterus,n85.2,hypertrophy. TECHNIQUE: Transabdominal and transvaginal pelvic ultrasound was performed using standard protocol. COMPARISON: No exams were available for comparison FINDINGS: UTERUS: Position: Anteverted. Size: 7.7 long by 5.2 AP by 6.7 transverse cm Endometrium: The endometrial stripe could not be visualized sonographically secondary to the multiple uterine fibroids. Myometrium: There are multiple uterine fibroids present. The largest is seen centrally and measures 5.3 x 4.2 x 4.4 cm. It is partially calcified. There is also a calcified fundal fibroid measuring 4 .4 x 2.5 x 3.0 cm. Cervix: Unremarkable. OVARIES: The ovaries could not be visualized due to overlying bowel. CUL-DE-SAC: Free fluid: None. Other: None. IMPRESSION: 1. Fibroid uterus. 2. The endometrial stripe is obscured due to the multiple uterine fibroids. 3. The ovaries cannot be visualized on this examination due to overlying bowel. DATA REPOSITORY:
== END ==
PROVIDERS: PCP Family Medicine; Visit Provider Obstetrics & Gynecology Gynecology
DX: D25.9 Leiomyoma of uterus, unspecified (principal)
CPT/HCPCS: 76830; 76856

== ENCOUNTER → 2023-10-11 01:18 | Outpatient (CLI) | payer MEDICARE, BC, SELFPAY ==
--- NOTE | 2023-10-11 07:45 | DI.MAMMO_ITS ---
Exam(s) MAMMO SCREENING EXAM: MAMMO SCREENING CLINICAL HISTORY: screening,Z12.39 TECHNIQUE: Mammograms were interpreted according to the usual protocol including computer analysis w [employer] CAD system, tomosynthesis and C-view imaging. COMPARISON: 2013 through 2021 FINDINGS: The breasts are composed of mainly fatty density , Breast Density category A. No suspicious masses or suspicious microcalcifications are seen. No skin thickening or abnormal axillary lymph nodes are seen. There has been no significant change from prior exams. IMPRESSION: BI-RADS Category 1, Negative mammogram Yearly screening mammography is recommended. Breast Density - Category A, fatty density. A negative radiographic report should not delay biopsy if a dominant or clinically suspicious mass is present. Up to ten percent of cancers are not identified on mammography. A negative report may reinforce clinical impression. Adenosis and dense breasts may obscure an underlying neoplasm. False positive reports average 6 to 10%. Patient will receive a letter notifying them of these results.
== END ==
PROVIDERS: PCP Family Medicine; Visit Provider Obstetrics & Gynecology Gynecology
DX: Z12.31 Encounter for screening mammogram for malignant neoplasm of breast (principal); R92.313 Mammographic fatty tissue density, bilateral breasts
CPT/HCPCS: 77063; 77067

== ENCOUNTER 2024-04-25 01:23 | Outpatient (CLI) | payer MEDICARE, BC, SELFPAY ==
[2024-04-25 11:13] LABS: ALT 53 U/L (14-59); AST 22 U/L (15-37); Albumin 3.8 g/dL (3.4-5.0); Alkaline Phosphatase 69 U/L (46-116); Anion Gap 7.3 mmol/L (3-11); BUN 26 mg/dL (7-18); Bilirubin, Total 1.08 mg/dL (0.2-1.0); CO2 27.7 mmol/L (21.0-32.0); CREATININE 1.4 mg/dL (0.55-1.02); Calculated LDL 115 mg/dL (<100); Chloride 104 mmol/L (98-107); Cholesterol 202 mg/dL (<200); Estimated GFR 39.48 (mL/min/1.73m2); Glucose 101 mg/dL (74-106); HDL Cholesterol 56 mg/dL (40-60); Potassium 4.4 mmol/L (3.5-5.1); Sodium 139 mmol/L (136-145); Triglyceride 155 mg/dL (<150); Vitamin B12 452 pg/mL (193-986)
== END 2024-04-25 01:24 | disposition home or self-care (01) ==
LOC: LBO 01:24
PROVIDERS: PCP Family Medicine; Visit Provider Family Medicine
DX: I10 Essential (primary) hypertension (principal); R25.1 Tremor, unspecified
CPT/HCPCS: 36415; 80053; 80061; 82607

== ENCOUNTER 2024-08-29 18:46 | Outpatient (REF) | payer MEDICARE, BC, SELFPAY ==
[2024-08-29 15:19] LABS: Bilirubin Negative (Negative); Blood Negative (Negative); Clarity Clear (Clear); Glucose Negative (Negative); Ketones Negative (Negative); Leukocyte Esterase Negative (Negative); Nitrite Negative (Negative); Specific Gravity 1.025 (1.005-1.025); Urobilinogen 0.2 mg/dL (Up to 0.2); pH 5.5 (5-8)
== END 2024-08-29 18:47 | disposition home or self-care (01) ==
LOC: LBN 18:46
PROVIDERS: PCP Family Medicine; Visit Provider Family Medicine
DX: R10.30 Lower abdominal pain, unspecified (principal)
CPT/HCPCS: 81003

== ENCOUNTER 2024-09-17 02:21 | Outpatient (CLI) | payer MEDICARE, BC, SELFPAY ==
[2024-09-18 19:20] LABS: Hepatitis C Ab w Rflx HCV PCR Negative (Negative)
== END 2024-09-17 02:22 | disposition home or self-care (01) ==
LOC: LBO 02:21
PROVIDERS: PCP Family Medicine; Visit Provider Family Medicine
DX: Z11.59 Encounter for screening for other viral diseases (principal)
CPT/HCPCS: 36415; 86803

== ENCOUNTER 2024-10-13 01:28 | Outpatient (CLI) | payer MEDICARE, BC, SELFPAY ==
--- NOTE | 2024-10-13 07:00 | DI.MAMMO_ITS ---
Exam(s) MAMMO SCREENING EXAM: MAMMO SCREENING CLINICAL HISTORY: screening,z12.39. TECHNIQUE: Bilateral full field digital CC and MLO mammographic images were obtained with 3D tomosyn thesis and utilizing computer aided detection (CAD). COMPARISON: Prior mammograms were reviewed. FINDINGS: There has been no significant change in the appearance and distribution of the fibroglandular tissue, which is predominately fatty.. A few asymmetric densities-small benign-appearing nodules in the right breast are unchanged from 2015 and therefore benign. There are no new spiculated masses nor malignant appearing microcalcification groups in either breast . There is no significant architectural distortion nor skin thickening-retraction. IMPRESSION: No radiographic evidence of malignancy. BI-RADS Category 1 - Negative Breast Density - Category A - Almost entirely fatty Breast density Category C or D implies that the patient has dense breast tissue. Dense breast tissue can make it harder to find cancer on a mammogram. Dense breast tissue is also associated with an incr eased risk of breast cancer. This information about the result of the mammogram report was provided to the patient to raise their awareness. Use this report when you speak with the patient about their risks for breast cancer, which includes their family history. At that time, you may recommend additional screening tests (Ultrasoun d or MRI) as these tests may add significant information. A negative radiographic report should not delay biopsy if a dominant or clinically suspicious mass is present. Up to ten percent of cancers are not identified on mammography. A negative report may reinforce clinical impression. Adenosis and dense breasts may obscure an underlying neoplasm. False positive reports average 6 to 10%. Patient will receive a letter notifying them of these results.
== END 2024-10-13 01:48 ==
LOC: DI 01:28
PROVIDERS: PCP Family Medicine; Visit Provider Family Medicine
DX: Z12.31 Encounter for screening mammogram for malignant neoplasm of breast (principal); R92.313 Mammographic fatty tissue density, bilateral breasts
CPT/HCPCS: 77063; 77067

== ENCOUNTER 2024-11-13 10:58 | Outpatient (CLI) | payer MEDICARE, BC, SELFPAY ==
[2024-11-13 09:44] LABS: ALT 40 U/L (14-59); AST 21 U/L (15-37); Albumin 3.4 g/dL (3.4-5.0); Alkaline Phosphatase 88 U/L (46-116); BUN 31 mg/dL (7-18); CREATININE 1.3 mg/dL (0.55-1.02); Calcium 11.2 mg/dL (8.5-10.1); Chloride 109 mmol/L (98-107); Estimated GFR 43.15 (mL/min/1.73m2); Glucose 101 mg/dL (74-106); Potassium 4.2 mmol/L (3.5-5.1); Sodium 142 mmol/L (136-145); Total Protein 6.8 g/dL (6.4-8.2)
== END 2024-11-13 10:59 | disposition home or self-care (01) ==
LOC: LBO 10:59
PROVIDERS: PCP Family Medicine; Visit Provider Family Medicine
DX: I10 Essential (primary) hypertension (principal); K57.90 Diverticulosis of intestine, part unspecified, without perforation or abscess without bleeding
CPT/HCPCS: 36415; 80053

== ENCOUNTER 2025-06-30 15:37 | Outpatient (CLI) | payer MEDICARE, BC, SELFPAY ==
--- NOTE | 2025-06-30 13:00 | DI.US_ITS ---
Exam(s) US LOWER EXTREMITY VENOUS LT EXAM: US LOWER EXTREMITY VENOUS LT CLINICAL HISTORY: ? DVT Recent transatlantic trip with persistent leg swelling lt lower ext TECHNIQUE: Left lower extremity venous ultrasound performed using grayscale, color-flow, and spectral Doppler analysis. COMPARISON: No exams were available for comparison FINDINGS: The left common femoral, femoral and popliteal veins demonstrate normal compressibility, augmentation, and color Doppler. The posterior tibial and peroneal veins are patent. The saphenofemoral junction is unremarkable. There is no evidence of a Godinez cyst. The soft tissues are unremarkable. IMPRESSION: No evidence of a left lower extremity DVT. DATA REPOSITORY:
== END 2025-06-30 15:57 ==
LOC: DI 15:39
PROVIDERS: PCP Family Medicine; Visit Provider Family Medicine
DX: M79.89 Other specified soft tissue disorders (principal)
CPT/HCPCS: 93971

== ENCOUNTER 2025-07-09 12:23 | Outpatient (CLI) | payer MEDICARE, BC, SELFPAY ==
[2025-07-09 12:37] LABS: HCT 36.8 % (36.0-46.0); HGB 12.4 g/dL (11.2-15.7); MCH 30.8 pg (27.0-33.0); MCHC 33.7 % (32.0-36.0); MCV 92 fL (80-95); MPV 10.0 fL (8.0-11.0); Platelet Count 288 10^3/uL (130-400); RBC 4.02 10^6/uL (3.93-5.22); RDW 12.5 % (11.7-14.6); RDW-SD 41.5 fL; WBC 6.95 10^3/uL (4.4-10.8)
[2025-07-09 12:48] LABS: Hemoglobin A1C 5.7 % (<5.7)
[2025-07-09 13:28] LABS: Iron 112 ug/dL (50-170)
[2025-07-09 13:37] LABS: ALT 49 U/L (14-59); AST 23 U/L (15-37); Albumin 4.1 g/dL (3.4-5.0); Alkaline Phosphatase 96 U/L (46-116); Anion Gap 7.7 mmol/L (3-11); BUN 40 mg/dL (7-18); Bilirubin, Total 0.7 mg/dL (0.2-1.0); C-Reactive Protein < 0.50 mg/dL (<or=0.5); CO2 25.3 mmol/L (21.0-32.0); Chloride 100 mmol/L (98-107); Estimated GFR 39.23 (mL/min/1.73m2); Glucose 99 mg/dL (74-106); Potassium 4.6 mmol/L (3.5-5.1); Sodium 133 mmol/L (136-145); TSH (W/Ref FT4) 2.19 uIU/mL (0.36-3.74); Total Protein 7.5 g/dL (6.4-8.2)
[2025-07-09 13:42] LABS: Calcium 11.6 mg/dL (8.5-10.1)
[2025-07-09 14:18] LABS: Ferritin 243 ng/mL (8-252); Vitamin B12 462 pg/mL (193-986)
[2025-07-09 21:36] LABS: Total Protein 7.3 g/dL (6.3-8.2)
[2025-07-10 13:12] LABS: Albumin 61.2 % (55.8-66.1); Albumin g/dL 4.5 g/dL (3.6-5.2); Alpha 1 g/dL 0.20 g/dL (0.15-0.40); Alpha 2 g/dL 0.80 g/dL (0.50-1.00); Beta g/dL 0.90 g/dL (0.60-1.20); Gamma g/dL 0.90 g/dL (0.60-1.60)
== END 2025-07-09 12:24 | disposition home or self-care (01) ==
LOC: LBO 12:23
PROVIDERS: PCP Family Medicine; Visit Provider Family Medicine
DX: G62.9 Polyneuropathy, unspecified (principal); I10 Essential (primary) hypertension; E03.9 Hypothyroidism, unspecified; D64.9 Anemia, unspecified; E11.9 Type 2 diabetes mellitus without complications; R79.89 Other specified abnormal findings of blood chemistry; E83.52 Hypercalcemia
CPT/HCPCS: 36415; 80053; 85027; 82607; 82728; 83036; 83540; 83970; 84165; 84443; 86140

== ENCOUNTER 2025-07-14 11:19 | Outpatient (CLI) | payer MEDICARE, BC, SELFPAY | END 2025-07-14 11:20 | disposition home or self-care (01) | LOC: LBO 11:19 | PROVIDERS: PCP Family Medicine; Visit Provider Family Medicine | DX: E83.52 Hypercalcemia (principal) | CPT/HCPCS: 36415; 82330 ==

== ENCOUNTER 2025-07-23 04:07 | Outpatient (CLI) | payer MEDICARE, BC, SELFPAY ==
--- NOTE | 2025-07-23 05:45 | DI.US_ITS ---
APPROVED REPORT EXAM: Comprehensive 2D, Doppler, and color-flow Echocardiogram Patient Location: Out-Patient [employer]te[employer] Helper: Jae Woodruff RDCS (AE) Indications: Left foot edema, murmur Other Information Study Quality: Adequate Conclusion Normal left ventricular wall thickness and chamber size. Ejection fraction is 65%. Wall motion is normal Normal right ventricular size and function Both atria are normal in size Aortic valve is mildly sclerotic and trileaflet with trace regurgitation Trace mitral and tricuspid regurgitation Wall motion Left Ventricle The left ventricle is normal size. The left ventricular systolic function is normal. The left ventricular ejection fraction is within the normal range. There is normal left ventricular wall thickness. There is normal LV segmental wall motion. The left ventricular diastolic function is normal. There is no ventricular septal defect visualized. LVEF is 65%. Right Ventricle The right ventricle is normal size. The right ventricular systolic function is normal. Atria The left atrium size is normal. The right atrium size is normal. The interatrial septum is intact with no evidence for an atrial septal defect. Aortic Valve The aortic valve is mildly sclerotic. Aortic valve is trileaflet. There is no aortic valvular stenosis. Trace aortic regurgitation is present. Mitral Valve The mitral valve is normal in structure. No evidence of mitral valve stenosis. Trace mitral regurgitation. Tricuspid Valve The tricuspid valve is normal in structure. There is no tricuspid valve stenosis. Trace tricuspid regurgitation. Pulmonic Valve The pulmonary valve is normal in structure. There is no pulmonic valvular stenosis. There is no pulmonic valvular regurgitation. Great Vessels The aortic root is normal in size. The ascending aorta is normal. Aortic arch is normal in caliber. IVC is normal in size and collapses >50% with inspiration. Pericardium There is no pericardial effusion. 2D Dimensions IVSD d PLAX 0.89 cm F: 0.6-1.0 Ao Root d 2.83 cm F: 2.7 - 3.3 LVPW d PLAX 0.88 cm F: 0.6 - 1.0 Ao Asc Diam d 3.22 cm F: 2.3 - 3.1 LVID d PLAX 5.09 cm F: 3.8 - 5.2 LVDs 3.28 cm F: 2.2 - 3.5 LV EF Teichholz 64.7 % FS 35.57 % LV EDV (Teich) 123.0 mL LV ESV (Teich) 43.4 mL Stroke Vol Index (Teich) 45.25 M-Mode TAPSE 2.73 cm (M/F) >1.7 Auto EF LV EDV A4C 81.1 mL LV EDV A2C 81.4 mL LV EDV BP 82.2 mL LV ESV A4C 28.8 mL LV ESV A2C 28.2 mL LV ESV BP 29.4 mL LVEF(%) A4C 64.6 % LVEF(%) A2C 65.4 % LVEF(%) BP 64.3 % LV SV A4C 52.4 ml LV SV A2C 53.2 ml LV SV BP 52.9 ml LV CO A4C 2.8 L/min LV CO A2C 2.8 L/min LV CO BP 2.8 L/min HR A4C 52.79 BPM HR A2C 51.80 BPM LV EDV Index (BP) LA Volume LA Length A4C 3.5 cm LA Length A2C 3.1 cm LA Area A4C s 6.01 cm2 LA Area A2C s 8.22 cm2 LA Vol A4C A-L 8.79 mL LA Vol A2C A-L 18.26 mL LA Vol Biplane A-L 13.3 mL LA Vol/BSA A4C A-L LA Vol/BSA A2C A-L LA Vol/BSA BP A-L 7.6 mL/m2 LA Vol A4C MOD 8.2 mL LA Vol A2C MOD 17.3 mL LA Vol BP MOD 12.4 mL LV Diastology MV E' medial 0.077 (>0.07 m/s) MV E Vmax 0.75 (0.4-1.3 m/s) MV E/E' MED 9.75 (<14) MV A Vmax 1.05 (0.4-1.3 m/s) MV E' lateral 0.112 (>0.1 m/s) E/A Ratio 0.7 MV E/E' LAT 6.70 (<14) MV E' Average 0.094 m/s MV E/E'(average) 7.94 Aortic Valve AoV Vmax 2.09 m/s LVOT Vmax 1.32 m/s AoV Peak Grad 17.5 mmHg LVOT Peak Grad 7.0 mmHg AoV Area (Vmax) 1.94 cm2 LVOT VTI 0.334 m AoV VTI 0.496 m LVOT Mean Grad 3.6 mmHg AoV Mean Primitivo. 1.36 m/s LVOT SV 102.59 mL AoV Mean Grad 8.6 mmHg LVOT Diam s 1.95 cm AoV Area (VTI) 2.07 cm2 AV Regurg Peak Gr. 17.49 mmHg Velocity Ratio 0.63 Mitral Valve MV DT 234 (160-240 msec) Pulmonary Valve PV Vmax 1.15 (0.5-1.5 m/s) RVOT Vmax 0.71 m/s PV Peak Grad 5.3 mmHg RVOT Peak Gr. 2.0 mmHg PV Mean Primitivo 0.75 m/s RVOT VTI 0.172 m PV Mean Grad 2.6 mmHg RVOT Mean Gr. 1.2 mmHg Tricuspid Valve RA Pressure 3.00 mmHg RVSP (TR) 4.0 mmHg
== END 2025-07-23 04:27 ==
PROVIDERS: PCP Family Medicine; Visit Provider Family Medicine
DX: R60.0 Localized edema (principal); I35.0 Nonrheumatic aortic (valve) stenosis
CPT/HCPCS: 93306

== ENCOUNTER → 2025-10-21 00:20 | Outpatient (CLI) | payer MEDICARE, BC, SELFPAY ==
--- NOTE | 2025-10-21 07:30 | DI.MAMMO_ITS ---
Exam(s) MAMMO SCREENING EXAM: MAMMO SCREENING CLINICAL HISTORY: screening,Z12.39 TECHNIQUE: Mammograms were interpreted according to the usual protocol including computer analysis with CAD system, tomosynthesis and C-view imaging. COMPARISON: 2019 through 2023 FINDINGS: The breasts are composed of mainly fatty density , Breast Density category A. No suspicious masses or suspicious microcalcifications are seen. No skin thickening or abnormal axillary lymph nodes are seen. There has been no significant change from prior exams. IMPRESSION: BI-RADS Category 1, Negative mammogram Yearly screening mammography is recommended. Breast Density- Category A - The breast are almost entirely fatty. Breast density Category C or D implies that the patient has dense breast tissue. Dense breast tissue can make it harder to find cancer on a mammogram. Dense breast tissue is also associated with an increased risk of breast cancer. This information about the result of the mammogram report was provided to the patient to raise their awareness. Use this report when you speak with the patient about their risks for breast cancer, which includes their family history. At that time, you may recommend additional screening tests (Ultrasound or MRI) as these tests may add significant information. A negative radiographic report should not delay biopsy if a dominant or clinically suspicious mass is present. Up to ten percent of cancers are not identified on mammography. A negative report may reinforce clinical impression. Adenosis and dense breasts may obscure an underlying neoplasm. False positive reports average 6 to 10%. Patient will receive a letter notifying them of these results.
== END ==
LOC: DI 00:20
PROVIDERS: PCP Family Medicine; Visit Provider Family Medicine
DX: Z12.31 Encounter for screening mammogram for malignant neoplasm of breast (principal)
CPT/HCPCS: 77063; 77067